=== PATIENT | female | born 1935 | race Caucasian/White ===

== ENCOUNTER 2017-12-06 17:18 | Inpatient (IN) | payer OTHER ==
[~2017-12-06] VITALS: Ht 163.8 cm; Wt 88.9 kg
--- OUTSIDE RECORDS SUMMARY | 2017-12-06 17:21 | XMS REPORT | Clinical Summary ---
Author Author KYLE [facility] Address Unknown Phone Unavailable Care Team Providers Care Wheel Blocker Name Role Phone PCP Unavailable Allergies No Known Allergies Current Medications Prescription Sig. Disp. Refills Start End Date Status Date amLODIPine (NORVASC) 5 MG Take 5 mg by mouth daily. Active tablet gabapentin (NEURONTIN) Take 600 mg by mouth 3 Active 600 MG tablet (three) times daily. HYDROcodone-acetaminophen Take 1 tablet by mouth 2 Active (NORCO 5-325) 5-325 mg (two) times daily as per tablet needed for Pain . aspirin 81 MG EC tablet Take 81 mg by mouth Active daily. PANTOPRAZOLE SODIUM Take 40 mg by mouth daily Active (PROTONIX ORAL) . sertraline (ZOLOFT) 50 MG Take 50 mg by mouth daily Active tablet . donepezil (ARICEPT) 5 MG Take 5 mg by mouth Active tablet nightly. cyanocobalamin (VITAMIN Inject 1,000 mcg Active B-12) 1,000 mcg/mL intramuscularly once a injection week. ferrous sulfate 325 (65 Take 325 mg by mouth 2 Active FE) MG tablet (two) times daily. potassium chloride 20 mEq Take 1 tablet by mouth Active TbER daily. Active Problems Problem Noted Date Angiodysplasia of duodenum with hemorrhage 05/16/2016 Acute blood loss anemia 05/15/2016 Chronic atrial fibrillation (HCC) 05/15/2016 H/O diastolic dysfunction 05/15/2016 Essential hypertension 05/15/2016 Acute GI bleeding 12/25/2014 Social History Tobacco Use Types Packs/Day Years Used Date Never Smoker Alcohol Use Drinks/Week oz/Week Comments No Sex Assigned at Date Recorded Not on file Last Filed Vital Signs Not on file Plan of Treatment Not on file Results Not on fileafter 12/05/2016
[2017-12-06] MEDS ORDERED: SODIUM CHLORIDE 0.9% 1000ML 1,000 ML IV ONE (18:15)
[2017-12-06 18:34] LABS: BASOPHILS # (AUTO) 0.1 (0.0-0.1); BASOPHILS % 0.5 % (0.0-1.0); EOSINOPHILS # (AUTO) 0.3 (0.0-0.4); EOSINOPHILS % 2.2 % (0.0-6.0); HEMATOCRIT 39.3 % (34.2-44.1); HEMOGLOBIN 13.2 g/dL (12.0-16.0); LYMPHOCYTES # (AUTO) 0.6 (1.0-3.2); LYMPHOCYTES % 4.5 % (18.0-39.1); MEAN CORPUSCULAR HEMOGLOBIN 29.7 pg (28-32); MEAN CORPUSCULAR HGB CONC 33.6 g/dL (31-35); MEAN CORPUSCULAR VOLUME 88.5 fL (81-99); MONOCYTES # (AUTO) 0.8 (0.2-0.8); NEUTROPHILS # (AUTO) 11.6 (2.1-6.9); NEUTROPHILS % 86.3 % (38.7-80.0); PLATELET COUNT 148 x10e3/uL (140-360); RED BLOOD COUNT 4.44 x10e6/uL (3.6-5.1); RED CELL DISTRIBUTION WIDTH 14.1 % (11.7-14.4)
[2017-12-06] MEDS: ACETAMINOPHEN 1000 MG/100 ML IV SCH (18:45)
[2017-12-06 18:46] LABS: ANION GAP 16.3 mmol/L (8-16); CALCIUM 10.7 mg/dL (8.4-10.2); CREATININE, SERUM 1.13 mg/dL (0.57-1.11); POTASSIUM 3.3 mmol/L (3.5-5.1)
--- NOTE | 2017-12-06 19:33 | Diagnostic Imaging Report ---
EXAMINATION: CHEST 2 VIEWS INDICATION: Pneumonia. COMPARISON: None FINDINGS: TUBES and LINES: None. LUNGS: Mild prominence of the pulmonary vasculature bilaterally. Mild bilateral perihilar, peribronchial thickening. There is no evidence of pneumonia or pulmonary edema. PLEURA: No pleural effusion or pneumothorax. HEART AND MEDIASTINUM: The cardiac silhouette is moderately enlarged. Thoracic aorta is tortuous. BONES AND SOFT TISSUES: No acute osseous lesion. Mild spondylosis of the thoracic spine. UPPER ABDOMEN: No free air under the diaphragm. IMPRESSION: Moderate cardiomegaly. Mild pulmonary venous congestion. Signed by: Dr. Bladimir Hurley M.D. on 12/06/2017 7:29 PM
[2017-12-06] MEDS ORDERED: CEFTRIAXONE SOD 1 GM VIAL IV ONE (19:45)
[2017-12-06] MEDS ORDERED: AZITHROMYCIN 500MG/NS 250 ML 250 ML IV STA (19:50)
[2017-12-06] MEDS ORDERED: SODIUM CHLORIDE 0.9% 1000ML 1,000 ML IV SCH (20:01)
[2017-12-06] MEDS ORDERED: ONDANSETRON HCL 4 MG ORAL DISINTEGRATING TAB PO PRN (20:15)
[2017-12-06] MEDS ORDERED: CEFTRIAXONE SOD 1 GM VIAL IV SCH (20:15)
[2017-12-06] MEDS ORDERED: DEXTROSE 50% SYRINGE 50 ML IV PRN (20:15)
[2017-12-06] MEDS ORDERED: AZITHROMYCIN 500MG/NS 250 ML 250 ML IV SCH (20:15)
[2017-12-06 20:28] LABS: CREATINE KINASE MB 0.9 ng/mL (0-5.0)
[2017-12-06] MEDS ORDERED: AZITHROMYCIN 500MG/NS 250 ML 250 ML IV ONE (20:30)
--- OUTSIDE RECORDS SUMMARY | 2017-12-06 20:39 | XMS REPORT ---
Author Author [facility] Address Unknown Phone Unavailable Care Team Providers Care Supervisor Plate Pasting Name Role Phone HARDY ROE Unavailable Unavailable Problems This patient has no known problems. Allergies, Adverse Reactions, Alerts This patient has no known allergies or adverse reactions. Medications This patient has no known medications. Results Test Description Test Time Test Comments Text Results Atomic Results Result Comments CHEST 2 VIEWS [place] [address] Patient Name: ALEX JIANG MR #: [id number] : 1935 Age/Sex: 82/F Req # : [id number] Adm Physician: Ordered by: HARDY ROE MD Report #: [id number] Location: ER Room/Bed: Procedure: [id number] DX/CHEST 2 VIEWS Exam Date: 12/06/17 Exam Time : 1901 REPORT STATUS: Signed EXAMINATION: CHEST 2 VIEWS INDICATION: Pneumonia. COMPARISON: None FINDINGS: TUBES and LINES: None. LUNGS: Mild prominence of the pulmonary vasculature bilaterally. Mild bilateral perihilar, peribronchial thickening. There is no evidence of pneumonia or pulmonary edema. PLEURA: No pleural effusion or pneumothorax. HEART AND MEDIASTINUM: The cardiac silhouette is moderately enlarged. Thoracic aorta is tortuous. BONES AND SOFT TISSUES: No acute osseous lesion. Mild spondylosis of the thoracic spine. UPPER ABDOMEN: No free air under the diaphragm. IMPRESSION: Moderate cardiomegaly. Mild pulmonary venous congestion. Signed by: Dr. Bladimir Garcia M.D. on 12/06/2017 7:29 PM Dictated By: ALMITA GARCIA MD, MD 28 Transcribed By: KINSEY on 12/06/171928 COPY TO: HARDY ROE MD
--- OUTSIDE RECORDS SUMMARY | 2017-12-06 20:39 | XMS REPORT | Clinical Summary ---
Author Author KYLE [facility] Address Unknown Phone Unavailable Care Team Providers Care Sodium Methylate Operator Name Role Phone PCP Unavailable Allergies No [...]
[2017-12-06] MEDS ORDERED: INSULIN REGULAR, HUMAN 100 UNIT/1 ML 3ML VIAL SQ SCH (21:00)
[2017-12-06 21:30] VITALS: BP 123/73
[2017-12-06 22:30] VITALS: BP 123/73
[2017-12-06] MEDS: ALBUTEROL/IPRATROPIUM 3 ML NEB NEB SCH (23:00)
[2017-12-07] VITALS (9 sets, daily range): BP systolic 140–164; BP diastolic 63–90
[2017-12-07] MEDS: ACETAMINOPHEN 1000 MG/100 ML IV SCH (00:12)
[2017-12-07] MEDS ORDERED: NORCO 10-325 T1 EACH PO (01:25)
[2017-12-07] MEDS: ALBUTEROL/IPRATROPIUM 3 ML NEB NEB SCH ×4 (03:00→14:49)
[2017-12-07 05:18] LABS: CLARITY,URINE CLEAR (CLEAR); COLOR,URINE YELLOW (YELLOW); LEUKOCYTE ESTERASE ,URINE TRACE (NEGATIVE); NITRITE,URINE POSITIVE (NEGATIVE)
[2017-12-07 05:19] LABS: BILIRUBIN,URINE NEGATIVE (NEGATIVE); KETONES,URINE NEGATIVE (NEGATIVE); PROTEIN,URINE DIPSTICK 2+ (NEGATIVE); URINE UROBILINOGEN 0.2 mg/dL (0.2 - 1)
[2017-12-07 05:21] LABS: BACTERIA,URINE RARE /HPF; EPITHELIAL CELLS,URINE MODERATE /LPF; RBC,URINE 0-5 /HPF (0-5); WBC,URINE (MAN) 21-50 /HPF (0-5)
[2017-12-07] MEDS: HYDROCODONE/APAP 10MG-325MG TAB PO PRN ×2 (06:01→18:53)
[2017-12-07 07:08] LABS: BASOPHILS % 0.5 % (0.0-1.0); EOSINOPHILS # (AUTO) 0.4 (0.0-0.4); EOSINOPHILS % 5.5 % (0.0-6.0); HEMATOCRIT 35.9 % (34.2-44.1); HEMOGLOBIN 11.9 g/dL (12.0-16.0); LYMPHOCYTES % 12.3 % (18.0-39.1); MEAN CORPUSCULAR HEMOGLOBIN 29.7 pg (28-32); MEAN CORPUSCULAR HGB CONC 33.1 g/dL (31-35); MEAN CORPUSCULAR VOLUME 89.5 fL (81-99); MONOCYTES # (AUTO) 1.1 (0.2-0.8); NEUTROPHILS # (AUTO) 5.4 (2.1-6.9); NEUTROPHILS % 67.3 % (38.7-80.0); PLATELET COUNT 123 x10e3/uL (140-360); RED BLOOD COUNT 4.01 x10e6/uL (3.6-5.1)
[2017-12-07 07:56] LABS: ALANINE AMINOTRANSFERASE 13 IU/L (0-55); ALBUMIN 3.4 g/dL (3.5-5.0); ALBUMIN/GLOBULIN RATIO 1.1 (0.8-2.0); ALKALINE PHOSPHATASE 61 IU/L (40-150); BLOOD UREA NITROGEN 15 mg/dL (7-26); BUN/CREATININE RATIO 19 (6-25); CALCIUM 9.7 mg/dL (8.4-10.2); CARBON DIOXIDE 26 mmol/L (22-29); CHLORIDE 103 mmol/L (98-107); EST GLOMERULAR FILTRATION RATE > 60 ML/MIN (60-); GLUCOSE 98 mg/dL (74-118); SODIUM 140 mmol/L (136-145)
[2017-12-07] MEDS ORDERED: POTASSIUM CHLORIDE 20 MEQ TAB CR PO SCH (09:00)
[2017-12-07] MEDS ORDERED: POTASSIUM CHLORIDE 20 MEQ TAB CR PO STA (10:46)
[2017-12-07] MEDS ORDERED: HYDRALAZINE HCL 20 MG/ML VIAL IV PRN (11:00)
[2017-12-07] MEDS ORDERED: PROMETHAZINE 12.5MG/ NACL 0.9% 12.5 MG/50 ML BAG IV PRN ×2 (11:00→22:45)
[2017-12-07] MEDS ORDERED: ALBUTEROL/IPRATROPIUM 3 ML NEB NEB PRN (11:00)
[2017-12-07] MEDS: ACETAMINOPHEN 325 MG TAB PO PRN ×2 (11:05→17:05)
[2017-12-07] MEDS ORDERED: FUROSEMIDE INJ 10 MG/ML 2 ML VIAL IV ONE (11:15)
[2017-12-07] MEDS ORDERED: ZOLPIDEM TARTRATE 5 MG TAB PO PRN ×2 (11:15→22:45)
[2017-12-07] MEDS: LISINOPRIL 10 MG TAB PO SCH ×2 (11:16→16:26)
--- NOTE | 2017-12-07 14:17 | Diagnostic Imaging Report ---
PROCEDURE: A single AP view of the chest. COMPARISON: Patients [facility], , CHEST 2 VIEWS, 12/06/2017, 18:27. INDICATIONS: WHEEZING, SHORT OF BREATH FINDINGS: See impression. IMPRESSION: 1. enlarged cardiac silhouette with mild central pulmonary venous congestion and mild perihilar interstitial edema. 2. No consolidation or effusion. 3. No acute bony abnormalities. Carlitos Madrigal M.D. Dictated by: Carlitos Madrigal M.D. on 12/07/2017 at 14:19 Electronically approved by: Carlitos Madrigal M.D. on 12/07/2017 at 14:19
--- NOTE | 2017-12-07 15:02 | Diagnostic Imaging Report ---
PROCEDURE:X-RAY ABDOMEN - KUB COMPARISON:None. INDICATIONS:NAUSEA FINDINGS: There is a non-obstructed bowel-gas pattern. No air-filled, dilated loops of bowel. No calcifications projected over the renal shadows, expected course of the ureters or bladder. Generalized osteopenia. Multilevel degenerative disc changes in the lumbosacral spine. The lung bases are clear. CONCLUSION: Nonobstructive bowel gas pattern. Carlitos Madrigal M.D. Dictated by: Carlitos Madrigal M.D. on 12/07/2017 at 15:04 Electronically approved by: Carlitos Madrigal M.D. on 12/07/2017 at 15:04
[2017-12-07] MEDS ORDERED: CEFTRIAXONE SOD 1 GM VIAL IV SCH (20:00)
[2017-12-07] MEDS ORDERED: AZITHROMYCIN 500MG/NS 250 ML 250 ML IV SCH (20:15)
[2017-12-07] MEDS ORDERED: AZITHROMYCIN 500MG/NS 250 ML 250 ML ONE (22:14)
[2017-12-07] MEDS ORDERED: CEFTRIAXONE SOD 1 GM VIAL ONE (22:14)
[2017-12-07] MEDS ORDERED: ONDANSETRON HCL 4 MG ORAL DISINTEGRATING TAB PO PRN (22:30)
[2017-12-08] VITALS (8 sets, daily range): BP systolic 134–178; BP diastolic 63–91
[2017-12-08] MEDS: HYDRALAZINE HCL 20 MG/ML VIAL IV PRN (00:18)
[2017-12-08] MEDS: ACETAMINOPHEN 325 MG TAB PO PRN ×2 (00:48→08:55)
[2017-12-08] MEDS: HYDROCODONE/APAP 10MG-325MG TAB PO PRN ×2 (05:33→21:43)
[2017-12-08] MEDS: ALBUTEROL/IPRATROPIUM 3 ML NEB NEB SCH ×4 (07:07→20:05)
[2017-12-08] MEDS: POTASSIUM CHLORIDE 20 MEQ TAB CR PO SCH (08:56)
[2017-12-08] MEDS ORDERED: LISINOPRIL 10 MG TAB PO SCH (09:00)
[2017-12-08] MEDS ORDERED: AZITHROMYCIN 500MG/NS 250 ML 250 ML IV SCH ×2 (09:00→22:00)
[2017-12-08] MEDS ORDERED: FUROSEMIDE INJ 10 MG/ML 2 ML VIAL IV NR (09:15)
[2017-12-08] MEDS: LISINOPRIL 10 MG TAB PO SCH ×2 (09:30→16:57)
[2017-12-08] MEDS ORDERED: NEXIUM20 MG (17:59)
[2017-12-08] MEDS ORDERED: CYMBALTA30 MG PO (17:59)
[2017-12-08] MEDS ORDERED: AMLODIPINE BESYL5 MG PO (17:59)
[2017-12-08] MEDS ORDERED: DONEPEZIL HCL5 MG PO (17:59)
[2017-12-08] MEDS ORDERED: LYRICA75 MG PO (17:59)
[2017-12-08] MEDS ORDERED: NYSTATIN1 EAC1 TOP (17:59)
[2017-12-08] MEDS ORDERED: CEFTRIAXONE SOD 1 GM VIAL IV SCH (22:45)
[2017-12-09] VITALS (7 sets, daily range): BP systolic 131–173; BP diastolic 63–90
[2017-12-09] MEDS: ACETAMINOPHEN 325 MG TAB PO PRN (04:12)
--- NOTE | 2017-12-09 06:59 | Diagnostic Imaging Report ---
EXAMINATION: CHEST SINGLE (PORTABLE) INDICATION: Cough. COMPARISON: 12/07/2017 FINDINGS: TUBES and LINES: None. LUNGS: Lungs are well inflated. Lungs are clear. There is no evidence of pneumonia or pulmonary edema. PLEURA: No pleural effusion or pneumothorax. HEART AND MEDIASTINUM: Cardiac size is mildly enlarged. There are atherosclerotic calcifications within the aorta. BONES AND SOFT TISSUES: No acute osseous lesion. Soft tissues are unremarkable. UPPER ABDOMEN: No free air under the diaphragm. IMPRESSION: No acute thoracic abnormality. Signed by: Dr. Emiliano Montano M.D. on 12/09/2017 6:55 AM
[2017-12-09] MEDS: ALBUTEROL/IPRATROPIUM 3 ML NEB NEB SCH ×4 (07:16→20:40)
[2017-12-09 07:29] LABS: BASOPHILS # (AUTO) 0.1 (0.0-0.1); BASOPHILS % 1.1 % (0.0-1.0); EOSINOPHILS # (AUTO) 0.4 (0.0-0.4); EOSINOPHILS % 7.9 % (0.0-6.0); HEMATOCRIT 36.9 % (34.2-44.1); HEMOGLOBIN 12.1 g/dL (12.0-16.0); LYMPHOCYTES # (AUTO) 1.7 (1.0-3.2); LYMPHOCYTES % 31.1 % (18.0-39.1); MEAN CORPUSCULAR HEMOGLOBIN 29.3 pg (28-32); MEAN CORPUSCULAR HGB CONC 32.8 g/dL (31-35); MEAN CORPUSCULAR VOLUME 89.3 fL (81-99); MONOCYTES # (AUTO) 0.6 (0.2-0.8); MONOCYTES % 10.3 % (4.4-11.3); NEUTROPHILS # (AUTO) 2.7 (2.1-6.9); NEUTROPHILS % 49.2 % (38.7-80.0); PLATELET COUNT 148 x10e3/uL (140-360); RED BLOOD COUNT 4.13 x10e6/uL (3.6-5.1); RED CELL DISTRIBUTION WIDTH 14.4 % (11.7-14.4)
[2017-12-09 08:20] LABS: ANION GAP 13.2 mmol/L (8-16); CALCIUM 10.5 mg/dL (8.4-10.2); CREATININE, SERUM 0.98 mg/dL (0.57-1.11); MAGNESIUM 1.5 MG/DL (1.3-2.1); POTASSIUM 3.2 mmol/L (3.5-5.1)
[2017-12-09] MEDS: POTASSIUM CHLORIDE 20 MEQ TAB CR PO SCH (09:04)
[2017-12-09] MEDS: LISINOPRIL 10 MG TAB PO SCH ×2 (09:04→16:33)
[2017-12-09] MEDS ORDERED: POTASSIUM CHLORIDE 20 MEQ TAB CR PO NR (15:45)
[2017-12-09] MEDS ORDERED: MAGNESIUM SULFATE 2GM/50ML 50 ML IV ONE (16:00)
[2017-12-09] MEDS: PREDNISONE 20 MG TAB PO SCH (16:33)
[2017-12-09] MEDS: LACTOBACILLUS ACIDOPHILUS CAPSULE PO SCH (16:33)
[2017-12-09] MEDS ORDERED: DONEPEZIL HCL 5 MG TAB PO SCH (21:00)
[2017-12-09] MEDS: HEPARIN SOD (PORCINE) 5,000 UNIT/ML VIAL SC SCH (21:51)
[2017-12-09] MEDS: HYDROCODONE/APAP 10MG-325MG TAB PO PRN (21:51)
--- NOTE | 2017-12-09 22:47 | Diagnostic Imaging Report ---
EXAM: CT Chest WITHOUT contrast 12/09/2017 3:41 PM INDICATION: Persistent wheezing. COMPARISON: Chest x-ray on 12/09/2017 TECHNIQUE: Chest was scanned utilizing a multidetector helical scanner from the lung apex through the level of the adrenal glands without administration of IV contrast. Absence of intravenous contrast decreases sensitivity for detection of lymphadenopathy and vascular pathology. Coronal and sagittal reformations were obtained. High-resolution protocol was performed. IV CONTRAST: None RADIATION DOSE: Total DLP: 1595.36 mGy*cm Estimated effective dose: (DLP x 0.014 x size factor) mSv COMPLICATIONS: None FINDINGS: LINES/ TUBES: None. LUNGS AND AIRWAYS: The lungs are unremarkable. Minimal central perihilar thickening of the bronchi. PLEURA: The pleural spaces are clear. HEART AND MEDIASTINUM: The thyroid gland is normal. No mediastinal, hilar or axillary lymphadenopathy. The heart is moderately enlarged.. There is no pericardial effusion. There are mild atherosclerotic calcifications in the aorta and coronary arteries. UPPER ABDOMEN: Limited non-contrast views of the upper abdomen show no abnormality within the visualized liver, spleen, pancreas, or kidneys. The adrenal glands are normal. 3 mm calcific density in the upper pole of the right kidney appears to be within the renal parenchyma and most likely represents a calcified granuloma. However, a 3 mm nephrolithiasis cannot be completely excluded. BONES: The visualized bony thorax is kyphotic. SOFT TISSUES: Unremarkable. IMPRESSION: 1. Minimal central perihilar thickening of the bronchi which can be seen on patients with reactive airway disease. 2. No evidence of pneumonia or bronchiolitis. Signed by: Dr. Emiliano Montano M.D. on 12/09/2017 10:43 PM
[2017-12-10] VITALS: BP 185/80
[2017-12-10] MEDS: HYDRALAZINE HCL 20 MG/ML VIAL IV PRN ×2 (01:28→08:43)
[2017-12-10 04:00] VITALS: BP 161/77
[2017-12-10] MEDS: ACETAMINOPHEN 325 MG TAB PO PRN ×2 (04:15→10:12)
[2017-12-10 06:19] VITALS: BP 161/77
[2017-12-10] MEDS: ALBUTEROL/IPRATROPIUM 3 ML NEB NEB SCH ×3 (06:38→14:22)
[2017-12-10 08:07] VITALS: BP 181/84
[2017-12-10 08:40] VITALS: BP 181/84
[2017-12-10] MEDS: LACTOBACILLUS ACIDOPHILUS CAPSULE PO SCH (08:42)
[2017-12-10] MEDS: POTASSIUM CHLORIDE 20 MEQ TAB CR PO SCH (08:42)
[2017-12-10] MEDS: HEPARIN SOD (PORCINE) 5,000 UNIT/ML VIAL SC SCH (08:42)
[2017-12-10] MEDS: PREDNISONE 20 MG TAB PO SCH (08:42)
[2017-12-10] MEDS: LISINOPRIL 10 MG TAB PO SCH (08:42)
[2017-12-10] MEDS ORDERED: DULOXETINE HCL 30 MG DELAYED RELEASE PO SCH (09:00)
[2017-12-10] MEDS ORDERED: NIFEDIPINE CR 30 MG TAB PO SCH (10:00)
--- NOTE | 2017-12-10 10:36 | Consultation ---
DATE OF CONSULTATION: December 09, 2017 PULMONARY MEDICINE CONSULT REFERRING PHYSICIAN: Dr. Lau Patient belongs to [facility]. HISTORY: Ms. Ramirez is a pleasant 82-year-old female with intermittent coughing. Patient was admitted to [facility] on December 06, 2017. Patient was having coughing. Patient had 101.3 temperature at that day of admit. While she did not look toxic, she was low on energy and with lot of respiratory symptoms and mild dyspnea, so she was admitted. Over the last few days, she has improved slightly. However, she retained this intermittent cough. Reportedly, the patient is complaining of some pain on the coughing. Chest x-ray was mostly unremarkable. Associated wheezing is present per report. I am consulted. PAST MEDICAL HISTORY: Hypertension; GERD; atrial fibrillation; dementia, mild; neuropathy; obesity. She denies history of asthma; she denies allergies; and she denies the GERD is symptomatic. MEDICATIONS: See medication list for details. Medications at this time include nebulized medicines, heparin subcutaneous, Aricept, prednisone 40 mg daily, and others. ALLERGIES: NO KNOWN DRUG ALLERGIES. SOCIAL HISTORY: No smoking, no drinking, no drugs. Actually, she smoked for 10 years in her 20s, but quit long ago. She grew up her 15 years of life with wood burning stoves. FAMILY HISTORY: Noncontributory. REVIEW OF SYSTEMS: GENERAL: Hard to say as patient is slightly forgetful and therefore review of systems is probably not totally accurate, so the patient could not provide reliably. OBJECTIVE: VITAL SIGNS: Afebrile, vital signs noted per electronic record. GENERAL: In no acute distress, alert and calm. HEENT: Normocephalic, atraumatic. NECK: Supple. Throat midline. LUNGS: Bilateral air entry, rare rhonchi. No wheezes on my exam. CARDIOVASCULAR: S1, S2. No murmurs, rubs, or gallops. ABDOMEN: Soft, nontender. EXTREMITIES: No clubbing, no cyanosis, there is trace edema to the feet. INTEGUMENT: No rash, no purpura. LABS: 3.2 potassium, 18 BUN, 0.98 creatinine. 5 white count, 37 hematocrit, 148,000 platelets. IMPRESSION AND PLAN: 1. Acute bronchitis. 2. Febrile syndrome, not otherwise specified, presumed bronchitis and upper respiratory tract infection. 3. Obesity, significant. 4. Reported gastroesophageal reflux disease per history. 5. Hypertension. 6. Dementia, mild. 7. Neuropathy. 8. Hypokalemia. At this time, will continue current treatment. Patient remains under care here at the hospital. Continue bronchodilators. Prednisone is reasonable. Patient is also under outpatient treatment possibly for gastroesophageal reflux disease, but we may need more history. It is not on her active medicines and her treatments, so will consider add on. I will discuss with respiratory to see how the patient specifically does after getting bronchodilators, given that the history taken from her is limited due to the mild memory loss. Will follow up closely. Consideration for chest CT can be done either inpatient or outpatient. I will like to thank you Dr. Lau for this consult. Please feel free to call with any questions. The family was not at bedside on my evaluation today, so I will seek their input regarding how much they want us to fix while she is in the hospital. Job#: [id number]
--- NOTE | 2017-12-10 10:37 | Discharge Summary ---
PRIMARY CARE DOCTOR: Dr. Chirag Bautista with [facility]. FINAL DIAGNOSIS: Reactive airway disease due to likely viral syndrome. SECONDARY DIAGNOSES 1. Uncontrolled hypertension, better. 2. Mild thrombocytopenia, resolved. 3. Possible atrial fibrillation. CONSULTANTS: Dr. Kelley, dba manager. PROCEDURES/STUDIES PERFORMED: Chest computerized tomography. HISTORY: Per H and P. HOSPITAL COURSE: The patient was admitted. She has no UTI. It was not a clean catch. Empirically, the patient was put on IV Rocephin and azithromycin for possible bronchitis. The patient was getting nebulizer treatments around the clock. However, the patient continued to have wheezing. Therefore, dba manager was consulted. CT of the chest was done, which was consistent with reactive airway disease. The patient was also started on steroids, which helped with her wheeze significantly. The patient only took Norvasc at home for blood pressure. She will go home on lisinopril and nifedipine extended release for better blood pressure control. She will also get a Medrol Dosepak with steroid taper. The patient was seen and evaluated today. It took 32 minutes total to discharge this patient. CONDITION ON DISCHARGE: Improved. DISCHARGE MEDICATIONS: Please see medication reconciliation form. HASMUKH GREGG M.D. Job#: [id number] RI cc:CHIRAG BAUTISTA MD
[2017-12-10] MEDS: HYDROCODONE/APAP 10MG-325MG TAB PO PRN (11:38)
--- NOTE | 2017-12-10 12:25 | Progress Note ---
DATE: December 10, 2017 PULMONARY MEDICINE PROGRESS NOTE SUBJECTIVE: Ms. Ramirez was seen and examined at bedside. Patient continues to have steady improvement. Small cough today. Still denies overt reflux. However, she is still forgetful and a decreased historian. She did have a small fall yesterday without significant injury. REVIEW OF SYSTEMS: No bleeding. No rash. OBJECTIVE VITALS: Afebrile, vital signs noted per electronic record. GENERAL: In no acute distress, alert and calm. HEENT: Normocephalic, atraumatic. NECK: Supple. Throat midline. LUNGS: Bilateral air entry, rare rhonchi. CARDIOVASCULAR: S1, S2. No murmurs, rubs, or gallops. ABDOMEN: Soft, nontender. EXTREMITIES: No clubbing, no cyanosis. There is trace edema. INTEGUMENT: No rash. No purpura. LABS: Potassium 3.6 and 0.98 creatinine. IMPRESSION AND PLAN 1. Acute and possibly chronic bronchitis. 2. Febrile syndrome consistent with upper respiratory tract infection, may be viral. 3. High suspicion of gastroesophageal reflux disease. However, it would be subclinical based on lack of symptoms. 4. Obesity. Consideration for obstructive sleep apnea. Continue prednisone tapering. DVT prophylaxis. Patient was counseled in the presence of son regarding possibility of GERD and need to make sure it is under control. Patient still denies any history of any allergies or asthma. Continue to mobilize the patient and stay strong. This I strongly encouraged to the son. Job#: [id number]
[2017-12-10] MEDS ORDERED: PROCARDIA XL30 MG PO (13:43)
[2017-12-10] MEDS ORDERED: LISINOPRIL10 MG PO (13:43)
[2017-12-10] MEDS ORDERED: MEDROL DOSE PACK (13:44)
== END 2017-12-10 16:01 | disposition home or self-care (01) | DRG 203 ==
LOC: ER 17:18 → ERHOLD 20:36 → MED/SURG3 20:54 → UNDODISIN 12-07 19:00
PROVIDERS: ADMIT Internal Medicine; ATTEND Internal Medicine
CPT/HCPCS: 36415; 71045; 71046; 71250; 74018; 80048; 80053; 81001; 82550; 82553; 82948; 83605; 83735; 83880; 84484; 85025; 87040; 87086; 87400; 93005; 93306; 94640; 97139; 99285; J0360; J0456; J0696; J1644; J1940; J7030

== ENCOUNTER 2021-02-06 16:46 | Emergency (ER) | payer OTHER ==
[~2021-02-06] VITALS: Ht 162.6 cm; Wt 99.8 kg
[~2021-02-06 16:46] MED LIST: AMLODIPINE BESYL5 MG PO; CYMBALTA30 MG PO; DONEPEZIL HCL5 MG PO; LISINOPRIL10 MG PO; LYRICA75 MG PO; MEDROL DOSE PACK; NEXIUM20 MG; NEXIUM20 MG PO; NORCO 10-325 T1 EACH PO; NYSTATIN1 EAC1 TOP; POTASSIUM CHLO20 ME1 PO; PROCARDIA XL30 MG PO
[2021-02-06 17:44] VITALS: BP 154/97
== END 2021-02-06 17:46 | disposition home or self-care (01) ==
LOC: ER 17:08
DX: M54.6 Pain in thoracic spine (principal); W18.30XD Fall on same level, unspecified, subsequent encounter; F03.90 Unspecified dementia, unspecified severity, without behavioral disturbance, psychotic disturbance, mood disturbance, and anxiety; I10 Essential (primary) hypertension; E11.9 Type 2 diabetes mellitus without complications; I48.91 Unspecified atrial fibrillation; K21.9 Gastro-esophageal reflux disease without esophagitis
CPT/HCPCS: 99283